=== PATIENT | female | born 1970 | race American Indian/Alaskan Native ===

== ENCOUNTER 2017-02-26 08:00 | Day surgery (SDC) | payer OTHER ==
[~2017-02-26] VITALS: Ht 165.1 cm; Wt 104.3 kg
[2017-02-26 08:26] VITALS: BP 120/78
[2017-02-26 13:16] VITALS: BP 112/69
== END 2017-02-26 12:15 | disposition home or self-care (01) ==
LOC: GI 08:00 → OR 10:30 → GI 12:15
PROVIDERS: Internal Medicine Gastroenterology
PROC: 0DBP8ZZ Excision of Rectum, Via Natural or Artificial Opening Endoscopic (ICD-10-PCS; principal; 2017-02-26 09:30)
PROC: 0DB68ZX Excision of Stomach, Via Natural or Artificial Opening Endoscopic, Diagnostic (ICD-10-PCS; 2017-02-26 09:30)
DX: K62.1 Rectal polyp (principal); K21.0 Gastro-esophageal reflux disease with esophagitis; K29.70 Gastritis, unspecified, without bleeding; K44.9 Diaphragmatic hernia without obstruction or gangrene
CPT/HCPCS: 43235; 45378; J1200; J1610; J2250; J2310; J3010; J3490